=== PATIENT | male | born 1945 | race Caucasian/White ===

== ENCOUNTER 2023-01-30 12:20 | Emergency (ER) | payer OTHER, MEDICARE ==
[2023-01-30 12:36] VITALS: BP 155/96; PULSE 100; RESP 18; TEMP 98; BMI 32.5
== END 2023-01-30 14:06 | disposition home or self-care (01) ==
LOC: FER 12:20
DX: M54.50 Low back pain, unspecified (principal)
CPT/HCPCS: 72100-TC-FY; 81003; 99284-25